=== PATIENT | female | born 1995 | race Caucasian/White ===

== ENCOUNTER 2019-01-01 18:22 | Emergency (ER) | payer OTHER ==
[~2019-01-01] VITALS: Ht 160 cm; Wt 83.9 kg
[2019-01-01 18:24] VITALS: Ht 160 cm; Wt 83.9 kg
[2019-01-01 20:46] VITALS: BP 120/63
== END 2019-01-01 20:46 | disposition home or self-care (01) ==
LOC: ED 18:22
DX: H66.91 Otitis media, unspecified, right ear (principal); J40 Bronchitis, not specified as acute or chronic; Z98.890 Other specified postprocedural states

== ENCOUNTER 2019-12-21 01:01 | Emergency (ER) | payer OTHER ==
[~2019-12-21] VITALS: Ht 160 cm; Wt 80.3 kg
[2019-12-21 01:06] VITALS: Ht 160 cm; Wt 80.3 kg
[2019-12-21 03:48] VITALS: BP 116/76
== END 2019-12-21 03:40 | disposition home or self-care (01) ==
LOC: ED 01:01
DX: J06.9 Acute upper respiratory infection, unspecified (principal)
CPT/HCPCS: Q0092